=== PATIENT | female | born 1995 | race Caucasian/White ===

== ENCOUNTER 2019-02-10 15:06 | Observation (INO) | payer OTHER ==
[~2019-02-10] VITALS: Ht 175.3 cm; Wt 79.0 kg
[~2019-02-10 15:06] MED LIST: ACET-141 PO; CIPR-193 PO; NORE1TAB27 PO
[2019-02-10] MEDS ORDERED: SOD CHLORIDE 0.9% 1,000 ML IV STA (15:40)
[2019-02-10] MEDS ORDERED: KETOROLAC 15 MG INJ IV STA (16:08)
[2019-02-10] MEDS ORDERED: CEFTRIAXONE 1 GM/50 ML (PMX) 50 ML IVPB ONE (16:30)
[2019-02-10] MEDS ORDERED: HYDROCODONE/APAP (5/325) TAB PO PRN (19:30)
[2019-02-10] MEDS ORDERED: ZOLPIDEM 5 MG TAB PO PRN (19:30)
[2019-02-10] MEDS ORDERED: morphine 2 MG INJ IV PRN (19:30)
[2019-02-10] MEDS ORDERED: ONDANSETRON 4 MG INJ IV PRN (19:30)
[2019-02-10] MEDS ORDERED: NACL 0.9% 3 ML SYG IV SCH (19:30)
[2019-02-10] MEDS ORDERED: DOCUSATE SODIUM 100 MG CAP PO PRN (19:30)
[2019-02-10 19:43] VITALS: BP 109/55; PULSE 60; RESP 18
[2019-02-10] MEDS: ACETAMINOPHEN 325 MG TAB PO PRN (21:42)
[2019-02-10] MEDS: NS + KCL 20 MEQ 1,000 ML IV SCH (21:43)
[2019-02-11] VITALS (20 sets, daily range): BP systolic 96–112; BP diastolic 46–66; PULSE 58–80; RESP 12–19
[2019-02-11] MEDS: NS + KCL 20 MEQ 1,000 ML IV SCH ×2 (07:59→15:30)
[2019-02-11] MEDS: ACETAMINOPHEN 325 MG TAB PO PRN ×2 (07:59→20:13)
[2019-02-11] MEDS ORDERED: CEFTRIAXONE 1 GM/50 ML (PMX) 50 ML IVPB SCH (16:30)
[2019-02-11] MEDS ORDERED: PROPOFOL 20 ML ONE (18:20)
[2019-02-11] MEDS ORDERED: MIDAZOLAM 1 MG/ML 2 ML INJ ONE (18:20)
[2019-02-11] MEDS ORDERED: DESFLURANE 15 MIN ONE (18:20)
[2019-02-11] MEDS ORDERED: ROCURONIUM 50 MG INJ ONE (18:20)
[2019-02-11] MEDS ORDERED: FENTAnyl 50 MCG/ML VIAL ONE (18:20)
[2019-02-11] MEDS ORDERED: LIDOCAINE 2% (SDV) 5 ML INJ ONE (18:20)
[2019-02-11] MEDS ORDERED: ONDANSETRON 4 MG INJ ONE (18:39)
[2019-02-11] MEDS ORDERED: SUGAMMADEX SODIUM 200 MG/2 ML VIAL IV ONE (18:40)
[2019-02-12 00:04] VITALS: BP 95/50; PULSE 67; RESP 18
[2019-02-12] MEDS: NS + KCL 20 MEQ 1,000 ML IV SCH (01:30)
[2019-02-12 07:40] VITALS: BP 106/52; PULSE 70; RESP 18
[2019-02-12] MEDS: ACETAMINOPHEN 325 MG TAB PO PRN (08:13)
== END 2019-02-12 09:16 | disposition home or self-care (01) ==
LOC: E/R 15:06 → EDBD 15:06 → MS1 18:17
PROVIDERS: ADMIT Internal Medicine; ATTEND Internal Medicine
DX: N20.2 Calculus of kidney with calculus of ureter (principal); N39.0 Urinary tract infection, site not specified; K59.00 Constipation, unspecified; R10.9 Unspecified abdominal pain; Z79.899 Other long term (current) drug therapy
CPT/HCPCS: 36415; 52310; 74176; 74430; 80048; 80053; 81003; 81025; 83036; 83690; 83735; 84100; 85025; 85610; 85730; 87086; 88300; 96374; 96375; J0696; J1885; J2250; J2405; J3010; J3480; J7030; Z7500; Z7502; Z7512; Z7610; G0378